=== PATIENT | female | born 1940 | race Caucasian/White ===

== ENCOUNTER 2017-02-21 11:34 | Emergency (ER) | payer MEDICARE, OTHER ==
[~2017-02-21 11:34] MED LIST: BUSPAR10 PO; LEXAPRO10 PO; LISINOPRIL40 MG PO; MEVACOR40 MG PO; PRIN10 PO; PROTONIX PO; SYN075 PO; TOPXL50 PO; VICODINTAB PO
== END 2017-02-21 13:00 | disposition home or self-care (01) ==
LOC: ER 11:34
DX: S56.911A Strain of unspecified muscles, fascia and tendons at forearm level, right arm, initial encounter (principal); Z79.899 Other long term (current) drug therapy; X50.0XXA Overexertion from strenuous movement or load, initial encounter
CPT/HCPCS: 73080-RT; 99283